=== PATIENT | female | born 1995 | race Caucasian/White ===

== ENCOUNTER → 2017-01-26 | Outpatient (CLI) | payer OTHER ==
[2017-01-26 14:46] LABS: BASO % 0.4 %; BASO ABS # 0.03 K/uL (0-0.2); COMPLETE YES; EOS % 0.9 %; HEMATOCRIT 40.9 % (37-47); IG% 0.1 %; LYMPH % 30.4 %; LYMPH ABS # 2.42 K/uL (1.2-3.4); MEAN CELL VOLUME 91.7 fL (80-100); MEAN CORPUSCULAR HGB CONC 32.8 g/dl (32-36); MEAN PLATELET VOLUME 10.8 fL (7.4-10.4); MONO % 6.8 %; NEUT % 61.4 %; PLATELET COUNT 329 K/uL (130-400); RED BLOOD COUNT 4.46 M/uL (4.2-5.4); WHITE BLOOD COUNT 7.97 K/uL (4.8-10.8)
[2017-01-26 14:48] LABS: URINE APPEARANCE CLEAR (CLEAR); URINE BILIRUBIN NEG (NEG); URINE COLOR YELLOW; URINE NITRITE NEG (NEG); URINE SPECIFIC GRAVITY 1.027 (1.000-1.030); UROBILINOGEN NEG (NEG)
[2017-01-26 14:52] LABS: MANUAL MICROSCOPIC REQUIRED? NO; REVIEW REQ? NO
[2017-01-26 15:00] LABS: ALT/SGPT 22 U/L (12-78); BLOOD UREA NITROGEN 12 mg/dl (7-18); CALCIUM 9.3 mg/dl (8.5-10.1); CARBON DIOXIDE 27 mmol/L (21-32); CHLORIDE 108 mmol/L (98-107); GLUCOSE 84 mg/dl (70-99); MAGNESIUM 2.2 mg/dl (1.8-2.4); SODIUM 140 mmol/L (136-145)
[2017-01-26 15:09] LABS: ALB/GLOB RATIO 1.1 (0.9-2); ALKALINE PHOSPHATASE 67 U/L (45-117); AST/SGOT 14 U/L (15-37); THYROID STIMULATING HORMONE 0.689 uIu/ml (0.300-4.500); TOTAL IRON BINDING CAPACITY 356 mcg/dl (250-450)
== END | disposition home or self-care (01) ==
LOC: C.LAB1850 12:21
PROVIDERS: ATTEND Psychiatry & Neurology Psychiatry
DX: Z51.81 Encounter for therapeutic drug level monitoring (principal); Z79.899 Other long term (current) drug therapy; R04.0 Epistaxis; R53.83 Other fatigue

== ENCOUNTER → 2017-10-17 | Outpatient (CLI) | payer OTHER | END | disposition home or self-care (01) | LOC: C.LAB1850 12:44 | PROVIDERS: ATTEND Psychiatry & Neurology Psychiatry | DX: Z51.81 Encounter for therapeutic drug level monitoring (principal); Z79.899 Other long term (current) drug therapy ==

== ENCOUNTER 2017-11-07 14:58 | Emergency (ER) | payer OTHER ==
[~2017-11-07] VITALS: Ht 157.5 cm; Wt 65.1 kg
[2017-11-07 15:05] VITALS: TEMP 37; Ht 157.5 cm; Wt 65.1 kg
[2017-11-07] MEDS ORDERED: LIDOCAINE 1% BUFFERED INJ 5 ML VIAL INFIL ONE (15:30)
[2017-11-07] MEDS ORDERED: PARO1TAB27 PO (15:52)
[2017-11-07] MEDS ORDERED: QUET1TAB10 PO (15:57)
[2017-11-07] MEDS ORDERED: BUPR200T2 PO (15:57)
[2017-11-07] MEDS ORDERED: LAMO25TA PO (15:57)
[2017-11-07] MEDS ORDERED: AMOX875T PO (15:58)
[2017-11-07 16:17] VITALS: BP 123/78; PULSE 98; O2SAT 98
--- NOTE | 2017-11-07 20:45 | EMERGENCY ROOM VISIT NOTE ---
ED Visit Note First contact with patient: 15:08 Chief Complaint: Dog bite. History of Present Illness: Ms. Parker is a 22-year-old white female who ambulates into the ED accompanied by female friend complaining of a dog bite to the right hand. 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 She reports the Rottweiler has been examined for rabies previously and has been negative and he has been in the shelters care for the last 2 years. Patient reports approximately 1 hour ago she was bitten by the dog. She sustained 2 open wounds on the hand and multiple abrasions on the forearm. Currently she is complaining of hand pain as a throbbing and achy sensation. She rates her discomfort 4/10. Her pain is nonradiating. Her pain worsens with palpation in the area of her lacerations/puncture wounds and her area of bruising. She has not identified any alleviating factors related to the pain. She has not taken any medications for her discomfort prior to arrival at the hospital. She denies any associated symptoms including forearm pain, wrist pain , hand finger numbness/tingling/weakness. Review of Systems: As noted above in history of present illness. Past Medical History: Patient denies. Current Medications: Paxil, Seroquel, Wellbutrin, Lamictal Allergies to Medications: Patient denies. Social History: Patient is currently employed; she feels safe in her home environment; she denies tobacco and alcohol use. Tetanus Immunization Status: Patient reports up-to-date. Physical Examination: Vital Signs: Date Time Temp Pulse Resp B/P (MAP) Pulse Ox O2 Delivery O2 Flow Rate FiO2 11/07/17 16:17 98 20 123/78 98 11/07/17 15:05 37.0 106 20 115/80 99 Room Air GENERAL: 22-year-old female in mild distress due to pain, nontoxic-appearing, afebrile and hemodynamically stable. NEUROLOGICAL: Awake, alert and oriented to person, place and time. Answering questions appropriately and following commands. SKIN: Warm, dry and pink. Right Upper Extremity: On the forearm patient has multiple superficial abrasions and a couple superficial contusions. On the hand she has 2 full-thickness lacerations 1 measuring 1.2 cm over the posterior ulnar styloid process area with bleeding controlled and the second one was 1 cm long over the anterior styloid process without active bleeding. RIGHT UPPER EXTREMITY: No gross bony deformity. No tenderness in the forearm, wrist or fingers. Mild tenderness over her puncture wounds/lacerations. She has full range of motion in all movements of all the fingers and thumb against resistance. Throughout the fingers the skin was warm and pink and capillary refill was brisk. She was able to distinguish light sensations to all dermatomes. ED Course: Patient is assessed as noted above. Patient's medication list was reviewed peer Wound Repair: Complexity: Basic Verbal consent was obtained after the risks and benefits were explained. The skin was prepped with betadine and a sterile field set. Wound edges of the wounds were anesthetized with a total of 3.2 ml buffered 1% lidocaine. The wounds were explored for foreign bodies and none found. Copious irrigation was performed using sterile saline. With direct pressure the bleeding subsided. Debridement was not performed. The wound edges were approximated using 5-0 Ethilon with a total of 4 simple interrupted sutures. Hemostasis and excellent approximation was achieved. Antibacterial ointment and a sterile dressing applied. No complications and the patient tolerated the procedure well. Patient was educated about tonight's findings and instructed on his treatment plan; he verbalizes understanding and agreement with this plan. Clinical Impression: Dog bite injury. Puncture wounds/lacerations to the right hand. Disposition: Patient discharged home in stable condition; prior to departure he was reassessed and subjectively reported she was feeling better and rated her discomfort 2/10. Plan: Comfort measures, wound care and signs of infection were discussed with the patient. Patient was prescribed Augmentin 875 mg 2 times a day for 10 days. Patient was encouraged to follow-up with personal physician or return emergency department for any signs of infection and/or suture removal in 10-12 days.
[2017-11-08] MEDS ORDERED: SULF800T23 PO (14:36)
[2017-11-08] MEDS ORDERED: OXYC1TAB3 PO (14:36)
[2017-11-10] MEDS ORDERED: AMOX875T PO (15:34)
== END 2017-11-07 16:18 | disposition home or self-care (01) ==
LOC: C.EDB 14:59 → C.EDD 16:18
DX: S61.451A Open bite of right hand, initial encounter (principal); S50.811A Abrasion of right forearm, initial encounter; W54.0XXA Bitten by dog, initial encounter; Y99.0 Civilian activity done for income or pay; Z79.01 Long term (current) use of anticoagulants; Z79.899 Other long term (current) drug therapy

== ENCOUNTER 2017-11-08 13:13 | Inpatient (IN) | payer OTHER ==
[~2017-11-08] VITALS: Ht 157.5 cm; Wt 64.4 kg
[~2017-11-08 13:13] MED LIST: AMOX875T PO; BUPR200T2 PO; LAMO25TA PO; PARO1TAB27 PO; QUET1TAB10 PO
[2017-11-08] MEDS ORDERED: CEFTRIAXONE SOD INJ 1 GM ADDVIAL IV STA (13:31)
[2017-11-08] MEDS ORDERED: KETOROLAC TROMETHAMINE 30 MG/ML VIAL IV STA (13:31)
[2017-11-08 13:57] LABS: BASO % 0.1 %; BASO ABS # 0.01 K/uL (0-0.2); EOS % 0.3 %; EOS ABS # 0.03 K/uL (0-0.5); HEMATOCRIT 42.2 % (37-47); HEMOGLOBIN 14.1 g/dL (12.0-16.0); IG# 0.04 K/uL (0.00-0.02); LYMPH % 9.8 %; LYMPH ABS # 1.11 K/uL (1.2-3.4); MEAN CELL VOLUME 90.9 fL (80-100); MEAN CORPUSCULAR HEMOGLOBIN 30.4 pg (25-34); MEAN CORPUSCULAR HGB CONC 33.4 g/dl (32-36); MEAN PLATELET VOLUME 10.4 fL (7.4-10.4); MONO % 13.1 %; MONO ABS # 1.48 K/uL (0.11-0.59); NEUT % 76.3 %; NEUT ABS # 8.67 K/uL (1.4-6.5); PLATELET COUNT 256 K/uL (130-400); RED CELL DISTRIBUTION WIDTH SD 46.6 fL (36.4-46.3); WHITE BLOOD COUNT 11.34 K/uL (4.8-10.8)
[2017-11-08 14:13] LABS: CALCIUM 9.3 mg/dl (8.5-10.1); CREATININE 0.85 mg/dl (0.60-1.20); POTASSIUM 3.3 mmol/L (3.5-5.1)
[2017-11-08] MEDS ORDERED: SULF800T23 PO (14:36)
[2017-11-08] MEDS ORDERED: OXYC1TAB3 PO (14:36)
[2017-11-08] MEDS ORDERED: CLINDAMYCIN 600 MG/54 ML D5W IV ONE (14:45)
--- NOTE | 2017-11-08 15:34 | DIAGNOSTIC IMAGING REPORT ---
R FOREARM 2 VIEWS ROUTINE HISTORY: 22 years-old Female dog bite; increasing redness and swelling acute soft tissue injury of the right forearm COMPARISON: None available TECHNIQUE: 2 views of the right forearm FINDINGS: No acute fracture, dislocation or opaque foreign body. Mild to moderate soft tissue swelling about the mid and distal forearm, most pronounced along the volar surface. IMPRESSION: Soft tissue swelling without fracture or opaque foreign body. The above report was generated using voice recognition software. It may contain grammatical, syntax or spelling errors. Electronically signed by: Guy Kern M.D. 11/08/2017 3:33 PM Dictated Date/Time: 11/08/2017 3:32 PM
[2017-11-08] MEDS ORDERED: ONDANSETRON INJ 2 MG/ML 2 ML VIAL IV STA (15:36)
[2017-11-08] MEDS ORDERED: MoRPHine SULFATE 2 MG/ML CARP IV STA (15:36)
[2017-11-08] MEDS ORDERED: OPTIRAY 320 IV PRN (15:45)
--- NOTE | 2017-11-08 16:38 | DIAGNOSTIC IMAGING REPORT ---
R UPPER EXTREMITY WITH HISTORY: 22 years-old Female dog bitel eval for tenosynvitis acute right arm pain status post dog bite COMPARISON: Right forearm radiographs of same day TECHNIQUE: Multiple axial CT images of the right upper extremity were obtained following the intravenous administration of 95 and now Optiray 320 IV contrast. A dose lowering technique was used consistent with the principals of [place]. FINDINGS: No acute fracture, dislocation or opaque foreign body identified. No significant degenerative changes. There is mild subcutaneous edema about the volar and dorsal aspects of the distal forearm without loculated fluid collection or abnormal enhancement identified. No definite evidence of muscular injury on these images. No definite evidence of tenosynovitis. IMPRESSION: 1. Mild likely posttraumatic subcutaneous edema about the volar and dorsal aspects of the distal forearm without large hematoma, opaque foreign body or acute fracture identified. 2. CT is relatively insensitive for evaluation of tenosynovitis. If of further clinical concern, follow-up MRI on a nonemergent basis is recommended. The above report was generated using voice recognition software. It may contain grammatical, syntax or spelling errors. Electronically signed by: Guy Kern M.D. 11/08/2017 4:36 PM Dictated Date/Time: 11/08/2017 4:29 PM
[2017-11-08] MEDS ORDERED: MoRPHine SULFATE 4 MG/ML 1 ML CARP\\VIAL IV PRN (17:15)
[2017-11-08] MEDS ORDERED: ONDANSETRON INJ 2 MG/ML 2 ML VIAL IV PRN (17:15)
[2017-11-08] MEDS ORDERED: ACETAMINOPHEN 325 MG TAB PO PRN (17:15)
[2017-11-08 18:20] VITALS: BP 122/74; PULSE 101; TEMP 37; O2SAT 100; Ht 157.5 cm; Wt 64.4 kg
--- NOTE | 2017-11-08 19:26 | EMERGENCY ROOM VISIT NOTE ---
ED Visit Note First contact with patient: 13:22 Chief Complaint: My dog bite got infected. History of Present Illness: Ms. Parker is a [id number] 22-year-old white female who ambulates into the ED complaining of a skin infection post dog bite. 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 She sustained 2 puncture wounds measuring 1 cm that I felt required suture closure. Her suture closure was normal but I used additional irrigation for cleaning. She was discharged to home on Augmentin and encouraged to follow-up or return to the ED as needed for signs of infection and/or suture removal. Patient wish reports she noted earlier today that she was developing redness that was surrounding her rooms, her lower forearm and moving up the forearm. This was associated with increasing pain throughout the forearm. She reports prior to coming to the ED she was seen at a local urgent care center who referred her to the ED. Currently she is complaining of a throbbing discomfort throughout the anterior and posterior forearm. She rates this discomfort 7/10. Her pain worsens with palpation, flexion, extension and radial and ulnar deviation of the wrist, flexion and extension of the fingers and pronation and supination of the forearm. She has mild relief when the arm is at rest and lying at her side. She has not taken any medications for pain prior to arrival at the hospital. Associated with her pain she reports she has paresthesias of all her fingers in her hand. She denies fevers, chills, sweats, other skin eruptions, other skin color changes, upper respiratory tract symptoms, cough, wheezing, shortness of breath , decreased appetite, nausea, vomiting, right axillary pain, right upper extremity weakness. Review of Systems: As noted above in history of present illness. All body systems were reviewed and found to be negative as noted above. Past Medical History: Unspecified psychiatric disorders, status post tonsillectomy. Current Medications: Medications Dose Route/Sig Max Daily Dose Days Date Category Lamictal (Lamotrigine) Unknown Strength Tab 1 Tab PO DAILY 11/07/17 Reported Wellbutrin Sr (Bupropion Hcl) 200 Mg Tab 200 Mg PO DAILY 11/07/17 Reported Seroquel (Quetiapine Fumarate) 200 Mg Tab 200 Mg PO HS 11/07/17 Reported Paxil (Paroxetine HCl) 20 Mg Tab 20 Mg PO DAILY 11/07/17 Reported Allergies to Medications: Patient denies. Social History: Patient is currently employed; she feels safe in her home environment; she denies tobacco use and admits to alcohol use. Tetanus Immunization Status: Patient reports up-to-date. Physical Examination: Vital Signs: Date Time Temp Pulse Resp B/P (MAP) Pulse Ox O2 Delivery O2 Flow Rate FiO2 11/08/17 16:02 98 16 116/78 97 Room Air 11/08/17 14:45 104 16 128/89 99 Room Air 11/08/17 13:54 101 16 123/84 100 Room Air 11/08/17 13:19 36.9 110 18 116/78 100 Room Air GENERAL: 22-year-old female in mild to moderate distress due to pain, nontoxic- appearing, afebrile and hemodynamically stable. NEUROLOGICAL: Awake, alert and oriented to person, place and time. Answering questions appropriately and following commands. Normal gait. SKIN: Warm, dry and pink. Right Upper Extremity: Patient's sutured wounds are over the lateral aspect of the radial styloid process and the dorsal aspect of the ulnar styloid process. Extending from both of these wounds inferiorly and superiorly is a mild erythema and edema with prominent superior extension. The erythema and edema is circumferential around the lower forearm and extends to the mid forearm. No lymphangitis above the cellulitis. No drainage from the wound. The skin is hot and tender to palpation. There is no purulent drainage from her wounds. There is no local lymphadenopathy. HEENT: Atraumatic and normocephalic. P THORAX: Lungs sounds are clear to auscultation and equal bilaterally with symmetrical chest wall. ABDOMEN: Flat, soft and nontender. Positive bowel sounds in all quadrants. No guarding, rigidity or organomegaly. RIGHT UPPER EXTREMITY: No gross bony deformity. No tenderness throughout the shoulder, upper arm, elbow and proximal forearm. Moderate tenderness throughout her forearm. Tenderness to percussion of the flexor tendons. Full range of motion in flexion and extension of the elbow. Decreased range of motion at the wrist in all movements due to pain. Passive pain with wrist extension. She also has an increase in pain when she fully extends all her fingers at the MCP, PIP and DIP joints. The hand is warm and pink but is not erythematous. She was able to distinguish light sensations through all dermatomes. She was able to touch her thumb to all fingers but reports she had a pulling sensation in the forearm when she performed this. Because of difficulty fully extending her fingers intrinsic hand strength was not tested. Her capillary refill was brisk to all fingers. ED Course: Patient is assessed as noted above. Patient's medication list was reviewed. Laboratory Testing: Test 11/08/17 13:35 Range/Units White Blood Count 11.34 4.8-10.8 K/uL Red Blood Count 4.64 4.2-5.4 M/uL Hemoglobin 14.1 12.0-16.0 g/dL Hematocrit 42.2 37-47 % Mean Corpuscular Volume 90.9 80-100 fL Mean Corpuscular Hemoglobin 30.4 25-34 pg Mean Corpuscular Hemoglobin Concent 33.4 32-36 g/dl Platelet Count 256 130-400 K/uL Mean Platelet Volume 10.4 7.4-10.4 fL Neutrophils (%) (Auto) 76.3 % Lymphocytes (%) (Auto) 9.8 % Monocytes (%) (Auto) 13.1 % Eosinophils (%) (Auto) 0.3 % Basophils (%) (Auto) 0.1 % Neutrophils # (Auto) 8.67 1.4-6.5 K/uL Lymphocytes # (Auto) 1.11 1.2-3.4 K/uL Monocytes # (Auto) 1.48 0.11-0.59 K/uL Eosinophils # (Auto) 0.03 0-0.5 K/uL Basophils # (Auto) 0.01 0-0.2 K/uL RDW Standard Deviation 46.6 36.4-46.3 fL RDW Coefficient of Variation 14.0 11.5-14.5 % Immature Granulocyte % (Auto) 0.4 % Immature Granulocyte # (Auto) 0.04 0.00-0.02 K/uL Erythrocyte Sedimentation Rate 11 0-21 mm/hr Sodium Level 139 136-145 mmol/L Potassium Level 3.3 3.5-5.1 mmol/L Chloride Level 106 98-107 mmol/L Carbon Dioxide Level 25 21-32 mmol/L Anion Gap 8.0 3-11 mmol/L Blood Urea Nitrogen 8 7-18 mg/dl Creatinine 0.85 0.60-1.20 mg/dl Est Creatinine Clear Calc Drug Dose 92.3 ml/min Estimated GFR () 113.5 Estimated GFR (Non- 97.9 BUN/Creatinine Ratio 9.7 10-20 Random Glucose 81 70-99 mg/dl Calcium Level 9.3 8.5-10.1 mg/dl Blood Culture: Pending Right Forearm X-Rays: Were read by myself and the radiologist showing no acute fractures or dislocations. Mild to moderate soft tissue swelling over the mid to distal forearm. No foreign bodies were noted. IV Contrast Right Upper Extremity CT was reviewed by myself and read by the radiologist showing mild posttraumatic subcutaneous edema about the volar and dorsal aspect of the distal forearm without large hematoma, foreign body, fracture or fluid collection. This was to evaluate for tenosynovitis and radiologist notes that further evaluation would best occur with an MRI. An IV lock was initiated and patient initially received 1 g of Rocephin IV and 30 mg of Toradol IV. Patient was reassessed multiple times during her stay in the emergency department. Patient's case was reviewed with Dr. Pang; he independently assessed the patient we agreed on diagnostic approach, treatment, disposition and plan. Patient received 600 mg of clindamycin IV and 2 mg of morphine IV for pain and 4 mg of Zofran IV for possible nausea. Patient's case was requested to be consulted with Dr. Blake, [facility], for possible surgical evaluation and/or admission. I did speak to multiple physician assistants in his practice because he was not in town but at a remote office. Through these conversations it was requested that the patient be admitted under medicine with orthopedics to consult. I did contact nikunj Kellyist; she requests that the patient be evaluated tonight for her symptoms by the orthopedist and they would admit the patient. I did contact Dr. Pitts who reported he would come to evaluate the patient tonight for the hospitalist. Patient was educated on today's findings. Clinical Impression: Right forearm cellulitis. Possible tenosynovitis. Status post dog bite. Decision-Making: Initially my differential diagnosis I considered tendinitis, tenosynovitis, foreign body infection, forearm fracture, and other causes. Disposition and Paln: Patient to be brought into the hospital by jordan Kelly, for medical observation/admission. Please see her notes and orders for final disposition and plan.
--- NOTE | 2017-11-08 19:40 | History and Physical ---
History & Physical Date & Time of Service: November 08, 2017 ~ 16:45 Chief Complaint: Infected Dog Bite Primary Care Physician: No Doctor, Assigned History of Present Illness 22-year-old female who presents to the ED with increased redness, pain, swelling to dog bite site that happened yesterday. 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 While in the ED, patient received sutures to the 2 puncture wound sites and given a prescription for Augmentin. Patient reports that this morning whenever she took off the bandage that was placed in the ED, she noticed increased redness and swelling. She also reports a moderate amount of pain and associated tingling in her fingers. She denies fevers and chills. No abdominal pain, nausea, vomiting. She denies chest pain, shortness of breath , lightheadedness, dizziness, diaphoresis, or syncopal events. No urinary symptoms. In the ED, patient is afebrile with no leukocytosis. CT of the right wrist was obtained that does not show any fluid collection. She was given IV clindamycin, IV Rocephin, IV morphine, IV Toradol, and IV Zofran. Past Medical/Surgical History Medical Problems: (1) Bipolar disorder Status: Chronic Family History Negative for premature CAD, diabetes, CVA Social History Smoking Status: Never Smoker Alcohol Use: occasionally Allergies Coded Allergies: No Known Allergies (Unverified , 11/08/17) Home Medications Scheduled Bupropion Hcl (Wellbutrin Sr), 200 MG PO DAILY Lamotrigine (Lamictal), 1 TAB PO DAILY Paroxetine (Paxil), 20 MG PO DAILY Quetiapine Fumarate (Seroquel), 200 MG PO HS Review of Systems ROS per HPI, all other systems reviewed and negative Physical Exam Vital Signs Date Time Temp Pulse Resp B/P (MAP) Pulse Ox O2 Delivery O2 Flow Rate FiO2 11/08/17 16:02 98 16 116/78 97 Room Air 11/08/17 14:45 104 16 128/89 99 Room Air 11/08/17 13:54 101 16 123/84 100 Room Air 11/08/17 13:19 36.9 110 18 116/78 100 Room Air General Appearance: WD/WN, no apparent distress Head: normocephalic, atraumatic Eyes: normal inspection, EOMI, sclerae normal ENT: hearing grossly normal, + pertinent finding (Mucous membranes moist) Neck: supple, no JVD, trachea midline Respiratory/Chest: lungs clear, normal breath sounds, no respiratory distress Cardiovascular: regular rate, rhythm, no edema, normal peripheral pulses Abdomen/GI: normal bowel sounds, non tender, soft, no organomegaly Extremities/Musculoskelatal: + pertinent finding (Puncture wounds noted on the right wrist-1 on the dorsal aspect of the ulna, another on the ventral aspect of the radius-sutures intact; has significant surrounding erythema and edema, erythema has been outlined; palpable right radial pulse; decreased sensation noted to fingers; ROM to fingers limited due to pain) Neurologic/Psych: no motor/sensory deficits, alert, normal mood/affect, oriented x 3 Skin: normal color, warm/dry Diagnostics Laboratory Results Results Past 24 Hours Test 11/08/17 13:35 Range/Units White Blood Count 11.34 4.8-10.8 K/uL Red Blood Count 4.64 4.2-5.4 M/uL Hemoglobin 14.1 12.0-16.0 g/dL Hematocrit 42.2 37-47 % Mean Corpuscular Volume 90.9 80-100 fL Mean Corpuscular Hemoglobin 30.4 25-34 pg Mean Corpuscular Hemoglobin Concent 33.4 32-36 g/dl Platelet Count 256 130-400 K/uL Mean Platelet Volume 10.4 7.4-10.4 fL Neutrophils (%) (Auto) 76.3 % Lymphocytes (%) (Auto) 9.8 % Monocytes (%) (Auto) 13.1 % Eosinophils (%) (Auto) 0.3 % Basophils (%) (Auto) 0.1 % Neutrophils # (Auto) 8.67 1.4-6.5 K/uL Lymphocytes # (Auto) 1.11 1.2-3.4 K/uL Monocytes # (Auto) 1.48 0.11-0.59 K/uL Eosinophils # (Auto) 0.03 0-0.5 K/uL Basophils # (Auto) 0.01 0-0.2 K/uL RDW Standard Deviation 46.6 36.4-46.3 fL RDW Coefficient of Variation 14.0 11.5-14.5 % Immature Granulocyte % (Auto) 0.4 % Immature Granulocyte # (Auto) 0.04 0.00-0.02 K/uL Erythrocyte Sedimentation Rate 11 0-21 mm/hr Sodium Level 139 136-145 mmol/L Potassium Level 3.3 3.5-5.1 mmol/L Chloride Level 106 98-107 mmol/L Carbon Dioxide Level 25 21-32 mmol/L Anion Gap 8.0 3-11 mmol/L Blood Urea Nitrogen 8 7-18 mg/dl Creatinine 0.85 0.60-1.20 mg/dl Est Creatinine Clear Calc Drug Dose 92.3 ml/min Estimated GFR () 113.5 Estimated GFR (Non- 97.9 BUN/Creatinine Ratio 9.7 10-20 Random Glucose 81 70-99 mg/dl Calcium Level 9.3 8.5-10.1 mg/dl Microbiology Results 11/08/17 Blood Culture, Received Pending 11/08/17 Blood Culture, Received Pending Diagnostic Radiology FOREARM X-RAY IMPRESSION: Soft tissue swelling without fracture or opaque foreign body. RIGHT WRIST CT IMPRESSION: 1. Mild likely posttraumatic subcutaneous edema about the volar and dorsal aspects of the distal forearm without large hematoma, opaque foreign body or acute fracture identified. 2. CT is relatively insensitive for evaluation of tenosynovitis. If of further clinical concern, follow-up MRI on a nonemergent basis is recommended. Impression Assessment and Plan RIGHT WRIST CELLULITIS, DOG BITE -Admit to [facility] -Patient suffered a dog bite yesterday, was seen in the ED and had 2 sutures placed and was started on Augmentin; when she woke up this morning, she had increased pain, erythema, and edema -Afebrile, no leukocytosis; do not suspect sepsis -CT negative for fluid collection -S/P clindamycin and Rocephin in the ED; will continue with Unasyn for now -Consider tenosynovitis -Orthopedics contacted by the ED who will evaluate the patient tonight BIPOLAR -Continue home medications; bupropion, limited green, paroxetine, quetiapine DVT PROPHYLAXIS -SCDs in the event patient needs invasive procedure DISPOSITION -In my clinical judgment this beneficiary meets acute admission criteria, established by [facility], that includes being hospitalized through two midnights. 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 Sustained a dog bite on her right hand while trying to adjust the dog's collar Per patient: The dog was fully vaccinated Patient was seen in the ER yesterday Is discharged home with Augmentin His morning noted worsening of pain, swelling and redness of right hand and wrist progressing to right elbow No fever or chills Came to ER for evaluate Patient empirically started with IV Unasyn CT of right hand showed no evidence of abscess, generalized tissue edema Orthopedics consulted Recommend continue with IV antibiotics If no improvement after next 24-48 hours Patient will need MRI of hand and wrist Remedios Palumbo MD Resuscitation Status VTE Prophylaxis Will order VTE Prophylaxis: Yes
--- NOTE | 2017-11-08 19:57 | ORTHOPEDIC CONSULTATION ---
DATE OF CONSULTATION: 11/08/2017 Special attention to right hand swelling. HISTORY OF PRESENT ILLNESS: This is a 22-year-old female who sustained a dog bite yesterday to the right wrist. She was seen in the Emergency Department and was placed on Augmentin. She notes increasing pain, swelling, and redness in the extremity. She denies any other complaints. She notes some tingling in all the fingers but no overt numbness. PAST MEDICAL HISTORY: Bipolar disorder. MEDICATIONS: Paxil, Seroquel, Wellbutrin, and Lamictal. SOCIAL HISTORY: Denies tobacco, alcohol, or drug use. PHYSICAL EXAMINATION: RIGHT WRIST: She has a laceration over the radial aspect of the wrist just proximal to the wrist joint. There was no gross purulence or drainage. She has a moderate amount of erythema in the volar wrist extending approximately 6 cm proximal to the wrist. I do not detect any obvious fluctuance, but it is slightly boggy. She has mild pain with range of motion of the digits but she has negative Kanavel sign. She has no localized swelling in her flexor tendons in the fingers. She has moderate erythema of the dorsal aspect of the wrist and she has a puncture wound in the region of the radiocarpal joint just distal to the ulnar styloid. There is no drainage from this laceration and this is sutured closed. She has minimal pain with short arc passive motion of the wrist and she can actively flex and extend the wrist and the digits. ASSESSMENT: A 22-year-old female with: 1. Dog bite, right upper extremity. 2. Right upper extremity cellulitis. Review of CAT scan shows no obvious evidence of abscess or obvious flexor tenosynovitis. PLAN: At this point, I would like to follow her clinical course. I do not see any surgical indications at this point in time. She does not have an obviously septic joint or septic flexor tenosynovitis or an abscess. We will continue antibiotics. We will follow her clinical course. If she does not respond to antibiotics, may consider surgical treatment. I feel she would benefit from an MRI to evaluate to see if she has any evidence of flexor tenosynovitis in the wrist or Parona's space. We will allow her to eat currently, but make her n.p.o. after midnight tomorrow in case surgical treatment is entertained. We will recheck tomorrow and follow her clinical course.
[2017-11-08] MEDS: AMPICILLIN/SULBACTAM SOD INJ 3,000 MG in SODIUM CHLORIDE 0.9% 100ML 100 ML IV SCH (20:07)
[2017-11-08] MEDS ORDERED: GADAVIST IV PRN (22:15)
[2017-11-08] MEDS: QUETIAPINE FUMARATE 200 MG TAB PO SCH (22:22)
--- NOTE | 2017-11-08 22:51 | DIAGNOSTIC IMAGING REPORT ---
RIGHT WRIST MRI WITH AND WITHOUT INTRAVENOUS CONTRAST HISTORY: Right wrist swelling and pain. r/o flexor tenosynovitis in the wrist, r/o septic wrist joint TECHNIQUE: Multiplanar multisequence MRI of the right wrist was performed both before and the intravenous administration of contrast. COMPARISON STUDY: Right wrist CT 11/08/2017. FINDINGS: There is subcutaneous edema and enhancement throughout the majority of the wrist most pronounced dorsally. Small amount of fluid along the extensor tendons of the wrist. This is most pronounced at the extensor digitorum tendons. There is also a small wrist effusion. There is mild enhancement of the synovial lining within the wrist. The flexor tendons are intact. The median nerve and mastoids a normal caliber and signal intensity. Normal marrow signal intensity seen throughout the visit osseous structures. No abnormal T1 signal or erosions at this time to suggest an osteomyelitis. Cartilage spaces are maintained for age. There is also a small amount of fluid tracking deep to the flexor tendons. No fracture or dislocation. IMPRESSION: 1. Subcutaneous edema and enhancement throughout the majority of the wrist most pronounced dorsally. This is consistent with a cellulitis. 2. Small amount of fluid surrounding the extensor tendons most pronounced at the extensor digital tendons consistent with a nonspecific tenosynovitis. There is fluid tracking deep to the flexor tendons but not surrounding the flexor tendons appear 3. Small wrist effusion. No bony destruction are cartilage abnormality at this time. However, there is mild enhancement of the synovial lining consistent with a nonspecific synovitis. Therefore, a septic process cannot be excluded. 4. No evidence for osteomyelitis. Electronically signed by: Johny Lyon M.D. 11/08/2017 10:50 PM Dictated Date/Time: 11/08/2017 10:42 PM
[2017-11-08 23:05] VITALS: BP 100/62; PULSE 93; TEMP 36.6; O2SAT 98
[2017-11-08 23:30] VITALS: O2SAT 98
[2017-11-09] MEDS: AMPICILLIN/SULBACTAM SOD INJ 3,000 MG in SODIUM CHLORIDE 0.9% 100ML 100 ML IV SCH ×4 (02:10→20:26)
[2017-11-09] MEDS: KETOROLAC TROMETHAMINE 15 MG/ML VIAL IV PRN ×2 (05:51→20:26)
[2017-11-09 06:27] LABS: HEMATOCRIT 37.4 % (37-47); HEMOGLOBIN 12.8 g/dL (12.0-16.0); MEAN CELL VOLUME 91.2 fL (80-100); MEAN CORPUSCULAR HEMOGLOBIN 31.2 pg (25-34); MEAN CORPUSCULAR HGB CONC 34.2 g/dl (32-36); MEAN PLATELET VOLUME 10.7 fL (7.4-10.4); PLATELET COUNT 220 K/uL (130-400); RED CELL DISTRIBUTION WIDTH CV 14.1 % (11.5-14.5); RED CELL DISTRIBUTION WIDTH SD 47.3 fL (36.4-46.3); WHITE BLOOD COUNT 9.34 K/uL (4.8-10.8)
[2017-11-09 06:59] LABS: CALCIUM 8.5 mg/dl (8.5-10.1); CREATININE 0.73 mg/dl (0.60-1.20); POTASSIUM 3.5 mmol/L (3.5-5.1)
[2017-11-09 08:14] VITALS: BP 102/70; PULSE 98; TEMP 36.8; O2SAT 98
[2017-11-09 08:18] VITALS: O2SAT 98
--- NOTE | 2017-11-09 08:56 | Orthopedic Progress Note ---
Orthopedic Progress Note Date of Service November 09, 2017. Subjective Reports: feeling well, Denies: chest pain, SOB, nausea / vomiting, light headedness, calf pain Additional Notes: FEELING SLIGHTLY BETTER THIS AM PER THE PATEINT. Objective N/V intact, capillary refill less than 2 sec., incision C/D/I, A&O x3 LACERATION REPAIR X 2, CDI. NO DRAINAGE. NO FLUCTUANCE OR OBVIOUS FLUID COLLECTION NOTED. ERYTHEMA STABLE DEMARCATION. Date Time Temp Pulse Resp B/P (MAP) Pulse Ox O2 Delivery O2 Flow Rate FiO2 11/09/17 08:18 98 Room Air 11/09/17 08:14 36.8 98 16 102/70 (81) 98 Room Air 11/08/17 23:30 98 Room Air 11/08/17 23:05 36.6 93 17 100/62 (75) 98 Room Air 11/08/17 18:20 37.0 101 16 122/74 (90) 100 Room Air 11/08/17 18:20 37.0 101 16 122/74 100 Room Air 11/08/17 18:00 108 16 117/75 100 Room Air 11/08/17 16:02 98 16 116/78 97 Room Air 11/08/17 14:45 104 16 128/89 99 Room Air 11/08/17 13:54 101 16 123/84 100 Room Air 11/08/17 13:19 36.9 110 18 116/78 100 Room Air Laboratory Results 24 Hours: Test 11/08/17 13:35 11/09/17 05:56 White Blood Count 11.34 K/uL Red Blood Count 4.64 M/uL Hemoglobin 14.1 g/dL 12.8 g/dL Hematocrit 42.2 % 37.4 % Mean Corpuscular Volume 90.9 fL Mean Corpuscular Hemoglobin 30.4 pg Mean Corpuscular Hemoglobin Concent 33.4 g/dl Platelet Count 256 K/uL Mean Platelet Volume 10.4 fL Neutrophils (%) (Auto) 76.3 % Lymphocytes (%) (Auto) 9.8 % Monocytes (%) (Auto) 13.1 % Eosinophils (%) (Auto) 0.3 % Basophils (%) (Auto) 0.1 % Neutrophils # (Auto) 8.67 K/uL Lymphocytes # (Auto) 1.11 K/uL Monocytes # (Auto) 1.48 K/uL Eosinophils # (Auto) 0.03 K/uL Basophils # (Auto) 0.01 K/uL Additional Notes: Item Value Date Time Erythrocyte Sedimentation Rate 11 mm/hr 11/08/17 7835 Assessment & Plan Assessment: RIGHT HAND CELLULITIS SP DOG BITE, LACERATION REPAIR. Plan: CONTINUE IV ABX REGULAR DIET TODAY, WILL MAKE NPO FOR TOMORROW JUST IN CASE WILL CONTINUE TO MONITOR CLINICAL RESPONSE WILL REVIEW IMAGING WITH DR. GORDON TODAY.
[2017-11-09] MEDS: D5W AND NSS 1,000 ML IV SCH ×2 (09:35→20:27)
[2017-11-09] MEDS: BuPROPion SR 100 MG TABCR PO SCH (09:35)
[2017-11-09] MEDS: PAROXETINE 20 MG TAB PO SCH (09:35)
[2017-11-09 12:17] VITALS: BP 106/74; PULSE 102; TEMP 36.5; O2SAT 100
--- NOTE | 2017-11-09 12:43 | Progress Note ---
Medicine Progress Note Date & Time of Visit: November 09, 2017 at 12:43. 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 less swelling no other symptoms Objective Last 8 Hrs Date Time Temp Pulse Resp B/P (MAP) Pulse Ox O2 Delivery O2 Flow Rate FiO2 11/09/17 12:17 36.5 102 16 106/74 (85) 100 Room Air 11/09/17 08:18 98 Room Air 11/09/17 08:14 36.8 98 16 102/70 (81) 98 Room Air 11/09/17 08:00 Room Air Physical Exam: General- oriented x 3, not in distress, speaks in sentences with no effort Head- atraumatic Eyes- PERRL, EOMI, anicteric ENT- oropharynx clear Neck- supple, no JVD, no adenopathy, no thyromegaly Lungs- clear to auscultation bilaterally Heart- regular rhythm; no murmur, normal rate Abdomen- normal bowel sounds, soft, nontender Extremities- right arm: less erythema, no warmth/tenderness, no active discharge from puncture sites no pretibial edema, no calf tenderness; peripheral pulses intact Neuro- alert, oriented x 3; PERRL, EOMI; no facial palsy; no dysarthria; motor 5 /5 bilaterally; no cogwheel rigidity; patellar DTRs +2/2; toes downgoing bilaterally; finger to nose intact bilaterally Skin- warm & dry Laboratory Results: Last 24 Hours Test 11/08/17 13:35 11/09/17 05:56 White Blood Count 11.34 K/uL 9.34 K/uL Red Blood Count 4.64 M/uL 4.10 M/uL Hemoglobin 14.1 g/dL 12.8 g/dL Hematocrit 42.2 % 37.4 % Mean Corpuscular Volume 90.9 fL 91.2 fL Mean Corpuscular Hemoglobin 30.4 pg 31.2 pg Mean Corpuscular Hemoglobin Concent 33.4 g/dl 34.2 g/dl Platelet Count 256 K/uL 220 K/uL Mean Platelet Volume 10.4 fL 10.7 fL Neutrophils (%) (Auto) 76.3 % Lymphocytes (%) (Auto) 9.8 % Monocytes (%) (Auto) 13.1 % Eosinophils (%) (Auto) 0.3 % Basophils (%) (Auto) 0.1 % Neutrophils # (Auto) 8.67 K/uL Lymphocytes # (Auto) 1.11 K/uL Monocytes # (Auto) 1.48 K/uL Eosinophils # (Auto) 0.03 K/uL Basophils # (Auto) 0.01 K/uL RDW Standard Deviation 46.6 fL 47.3 fL RDW Coefficient of Variation 14.0 % 14.1 % Immature Granulocyte % (Auto) 0.4 % Immature Granulocyte # (Auto) 0.04 K/uL Erythrocyte Sedimentation Rate 11 mm/hr Sodium Level 139 mmol/L 138 mmol/L Potassium Level 3.3 mmol/L 3.5 mmol/L Chloride Level 106 mmol/L 106 mmol/L Carbon Dioxide Level 25 mmol/L 24 mmol/L Anion Gap 8.0 mmol/L 9.0 mmol/L Blood Urea Nitrogen 8 mg/dl 9 mg/dl Creatinine 0.85 mg/dl 0.73 mg/dl Est Creatinine Clear Calc Drug Dose 92.3 ml/min 107.4 ml/min Estimated GFR () 113.5 136.5 Estimated GFR (Non- 97.9 117.7 BUN/Creatinine Ratio 9.7 12.9 Random Glucose 81 mg/dl 83 mg/dl Calcium Level 9.3 mg/dl 8.5 mg/dl Date/Time Source Procedure Growth Status 11/08/17 13:40 Blood Blood Culture Pending Received 11/08/17 13:35 Blood Blood Culture Pending Received Assessment & Plan RIGHT WRIST CELLULITIS, DOG BITE -CT negative for fluid collection MRI arm noted -- improving ff up cultures continue Unasyn -- appreciate Ortho recommendations will consult ID BIPOLAR -Continue home medications; bupropion, limited green, paroxetine, quetiapine DVT PROPHYLAXIS -SCDs in the event patient needs invasive procedure DISPOSITION pending Current Inpatient Medications: Current Inpatient Medications Medications (Trade) Dose Ordered Sig/Khanh Route Start Time Stop Time Status Last Admin Dose Admin Ioversol (Optiray 320) 100 ml UD PRN IV 11/08/17 15:45 11/12/17 15:44 Acetaminophen (Tylenol Tab) 650 mg Q4H PRN PO 11/08/17 17:15 12/08/17 17:14 Ondansetron HCl (Zofran Inj) 4 mg Q6H PRN IV 11/08/17 17:15 6/15/18 17:14 Ampicillin Sodium/ Sulbactam Sodium 3000 mg/Sodium Chloride 108 ml @ 200 mls/hr Q6H IV 11/08/17 20:00 11/18/17 17:14 11/09/17 08:02 200 MLS/HR Ketorolac Tromethamine (Toradol Inj) 15 mg Q6H PRN IV 11/08/17 17:15 11/13/17 17:14 11/09/17 05:51 15 MG Morphine Sulfate (MoRPHine SULFATE INJ) 3 mg Q3H PRN IV 11/08/17 17:15 11/22/17 17:14 Bupropion HCl (Wellbutrin-Sr Tab) 200 mg DAILY PO 11/09/17 09:00 12/09/17 08:59 11/09/17 09:35 200 MG Paroxetine HCl (pAXil TAB) 20 mg DAILY PO 11/09/17 09:00 12/09/17 08:59 11/09/17 09:35 20 MG Quetiapine Fumarate (seroQUEL TAB) 200 mg HS PO 11/08/17 21:00 12/08/17 20:59 11/08/17 22:22 200 MG Lamotrigine (Lamictal Tab) 50 mg DAILY PO 11/09/17 09:00 12/09/17 08:59 11/09/17 09:35 50 MG Gadobutrol (Gadavist) 6 mmol UD PRN IV 11/08/17 22:15 11/12/17 22:14 Dextrose/Sodium Chloride 1,000 ml @ 100 mls/hr Q10H IV 11/09/17 08:45 12/09/17 08:44 11/09/17 09:35 100 MLS/HR
--- NOTE | 2017-11-09 14:49 | Progress Note ---
Progress Note Date of Service November 09, 2017. Progress Note ID Consult Dictated #[id number] A/P: 1. Dog bite cellulitis -Continue unasyn, follow cultures -will follow, thank you
[2017-11-09 15:15] VITALS: BP 105/71; PULSE 94; TEMP 36.4; O2SAT 99
--- NOTE | 2017-11-09 17:42 | PROGRESS NOTE ---
DATE: 11/09/2017 SUBJECTIVE: Raheem was seen at the bedside today. She notes overall less pain compared to yesterday. Denies any other complaint. OBJECTIVE: EXTREMITIES: Right hand examination: Right hand shows less erythema compared to yesterday. She has ability to actively flex and extend the digits without discomfort. Negative Kanavel sign. I can move her wrist without significant discomfort. No evidence of septic joint. ASSESSMENT: Hospital day #1, cellulitis right hand, status post dog bite. PLAN: At this point in time, I do not see any surgical indications. I do feel she is responding well to antibiotics. Orthopedics will sign off. Please call if there any further questions or concerns.
--- NOTE | 2017-11-09 19:34 | INFECT. DISEASE CONSULTATION ---
DATE OF CONSULTATION: 11/09/2017 Infectious disease consult note. HISTORY OF PRESENT ILLNESS: This is a 22-year-old female who was admitted after she had worsening cellulitis. 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 She was initially seen in the ER, the wound was sutured and she was sent home on Augmentin. She continued to have worsening pain, swelling, erythema and decreased range of motion. She reported back to the Emergency Room and was subsequently admitted. She is currently on Unasyn and is tolerating this well. She did have an MRI of the wrist which showed cellulitis and some extensor tenosynovitis, but no fluid collection was identified. She was seen by orthopedic surgery and there are no plans for OR at this time. She states the dog was up-to-date with rabies vaccination. Her last tetanus vaccine was in 2016. She initially had a white blood cell count of 11.3, it has improved to 9. Her sed rate is normal at 11. She is tolerating antibiotics well. She denies any chest pain, cough, shortness of breath, nausea, vomiting, diarrhea or abdominal pain. She has improved range of motion today and less pain. Erythema is also improving from admission. Her remaining review of systems is reviewed and unremarkable. PAST MEDICAL HISTORY: Significant for bipolar disorder. FAMILY HISTORY: Noncontributory. SOCIAL HISTORY: Negative for tobacco use or drug use. She occasionally drinks alcohol. ALLERGIES: She has no known drug allergies. MEDICATIONS: Wellbutrin, Paxil, Lamictal, Seroquel, Unasyn, Tylenol, Zofran, Toradol, morphine. PHYSICAL EXAMINATION: VITAL SIGNS: She is afebrile, pulse 102, respiratory rate 16, blood pressure 106/74, oxygen saturation is 100% on room air. GENERAL: She is awake, alert and oriented x3. She is in no acute distress. HEENT: Mucous membranes are moist. Extraocular muscles are intact. HEART: Regular. LUNGS: Clear. ABDOMEN: Soft and nontender. EXTREMITIES: There is no lower extremity edema. SKIN: Without rash. Examination of the right wrist reveals erythema to be improving from line drawn in the Emergency Room. There is swelling at the wrist. Suture sites are clean, dry and intact. There is no purulent drainage. Sensation is intact. She is able to move her digits with minimal pain. She has diminished flexion and extension at the wrist secondary to pain and swelling. LABORATORY STUDIES: CBC: White blood cell count 9.3, hemoglobin 12.8, platelets 220. Sed rate was 11. Chemistry panel: Sodium 138, potassium 3.5, chloride 106, bicarb 24, BUN 9, creatinine 0.7, glucose 83. Imaging is as above. Blood culture and wound cultures are pending. ASSESSMENT AND PLAN: Dog bite cellulitis. She will remain on Unasyn pending additional culture results. She is clinically improving. We will follow along with you. Thank you for this consultation.
[2017-11-09] MEDS: QUETIAPINE FUMARATE 200 MG TAB PO SCH (21:30)
[2017-11-09 22:56] VITALS: BP 100/66; PULSE 97; TEMP 36.6; O2SAT 98
[2017-11-10] MEDS: AMPICILLIN/SULBACTAM SOD INJ 3,000 MG in SODIUM CHLORIDE 0.9% 100ML 100 ML IV SCH ×3 (02:15→14:33)
[2017-11-10] MEDS: D5W AND NSS 1,000 ML IV SCH (05:58)
[2017-11-10 07:09] VITALS: BP 103/71; PULSE 71; TEMP 36.6; O2SAT 99
[2017-11-10] MEDS: PAROXETINE 20 MG TAB PO SCH (09:10)
[2017-11-10] MEDS: BuPROPion SR 100 MG TABCR PO SCH (09:10)
--- NOTE | 2017-11-10 11:17 | Progress Note ---
Subjective Date of Service: November 10, 2017. Subjective Pt evaluation today including: conversation w/ patient, physical exam, chart review, lab review pt seen in followup, she is doing well. still with some pain but improving. improving ROM as well. no f/c. tolerating abx. wound culture pending, gram stain negative. blood cultures remain negative. asking to go home. all remaining ros reviewed and are negative, no plans for OR. Problem List Medical Problems: (1) Dog bite Status: Acute Objective Vital Signs Date Time Temp Pulse Resp B/P (MAP) Pulse Ox O2 Delivery O2 Flow Rate FiO2 11/10/17 07:45 Room Air 11/10/17 07:09 36.6 71 16 103/71 (82) 99 Room Air 11/10/17 00:00 Room Air 11/09/17 22:56 36.6 97 16 100/66 (77) 98 Room Air 11/09/17 16:20 Room Air 11/09/17 15:15 36.4 94 16 105/71 (82) 99 Room Air 11/09/17 12:17 36.5 102 16 106/74 (85) 100 Room Air Physical Exam General Appearance: WD/WN, no apparent distress Eyes: normal inspection, EOMI Neck: supple Respiratory/Chest: lungs clear, normal breath sounds, no respiratory distress Cardiovascular: regular rate, rhythm, no edema Abdomen: non tender, soft Extremities: non-tender, no pedal edema Neurologic/Psychiatric: alert, oriented x 3 Skin: normal color Comments: right hand with improved erythema, almost completely resolved. improved edema and improved ROM at wrist. able to move all fingers, sensation intact. no drainage or bleeding. Laboratory Results Item Value Date Time Gram Stain - Final Resulted 11/09/17 1430 Drainage - Surface Arm , Right Upper Blood Culture - Preliminary Resulted 11/08/17 1340 Blood NO GROWTH TO DATE. Blood Culture - Preliminary Resulted 11/08/17 1335 Blood NO GROWTH TO DATE. Assessment and Plan (1) Cellulitis Assessment & Plan: continue unasyn while inpatient, upon d/c can change to augmentin 875mg po bid x 14 days. ok for d/c from ID standpoint. (2) Animal bite of hand
[2017-11-10 14:53] VITALS: BP 103/71; PULSE 71; TEMP 36.6; O2SAT 99
--- NOTE | 2017-11-10 15:32 | Progress Note ---
Medicine Progress Note Date & Time of Visit: November 10, 2017 at 15:28. 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 no chills denies other symptoms states she is ready and would like to be discharged today Objective Last 8 Hrs Date Time Temp Pulse Resp B/P (MAP) Pulse Ox O2 Delivery O2 Flow Rate FiO2 11/10/17 14:53 36.6 71 16 99 Room Air 11/10/17 07:45 Room Air Physical Exam: General- oriented x 3, not in distress, speaks in sentences with no effort Eyes- anicteric Neck- supple, no JVD Lungs- clear to auscultation bilaterally, no rales/wheezes Heart- regular rhythm; no murmur, normal rate Abdomen- normal bowel sounds, soft, nontender Extremities- right arm: minimal erythema, no warmth/tenderness, very small serous discharge from puncture sites full ROM hand/fingers/wrist no pretibial edema, no calf tenderness; peripheral pulses intact Neuro- alert, oriented x 3; no gross focal deficits Skin- warm & dry Assessment & Plan RIGHT WRIST CELLULITIS, DOG BITE -CT negative for fluid collection MRI arm noted -- improving blood culture and wound cultures: negative received Unasyn IV x 3 days --Ortho Consulted, Dr. Avendano--> no surgical intervention recommended ID Consulted Dr. Benites--> recommend 14 days of Augmentin (patient already has prescription from initial presentation to ER) -- ff up with PCP on Monday 11/13, will also need suture removal BIPOLAR DISORDER -Continue home medications; bupropion, limited green, paroxetine, quetiapine DVT PROPHYLAXIS -SCDs in the event patient needs invasive procedure DISPOSITION d/c home -- ff up with PCP on Monday 11/13, will also need suture removal Current Inpatient Medications: Current Inpatient Medications Medications (Trade) Dose Ordered Sig/Khanh Route Start Time Stop Time Status Last Admin Dose Admin Ioversol (Optiray 320) 100 ml UD PRN IV 11/08/17 15:45 11/12/17 15:44 Acetaminophen (Tylenol Tab) 650 mg Q4H PRN PO 11/08/17 17:15 12/08/17 17:14 Ondansetron HCl (Zofran Inj) 4 mg Q6H PRN IV 11/08/17 17:15 12/08/17 17:14 Ampicillin Sodium/ Sulbactam Sodium 3000 mg/Sodium Chloride 108 ml @ 200 mls/hr Q6H IV 11/08/17 20:00 11/18/17 17:14 11/10/17 14:33 200 MLS/HR Ketorolac Tromethamine (Toradol Inj) 15 mg Q6H PRN IV 11/08/17 17:15 11/13/17 17:14 11/09/17 20:26 15 MG Morphine Sulfate (MoRPHine SULFATE INJ) 3 mg Q3H PRN IV 11/08/17 17:15 11/22/17 17:14 Bupropion HCl (Wellbutrin-Sr Tab) 200 mg DAILY PO 11/09/17 09:00 12/09/17 08:59 11/10/17 09:10 200 MG Paroxetine HCl (pAXil TAB) 20 mg DAILY PO 11/09/17 09:00 12/09/17 08:59 11/10/17 09:10 20 MG Quetiapine Fumarate (seroQUEL TAB) 200 mg HS PO 11/08/17 21:00 12/08/17 20:59 11/09/17 21:30 200 MG Gadobutrol (Gadavist) 6 mmol UD PRN IV 11/08/17 22:15 11/12/17 22:14 Dextrose/Sodium Chloride 1,000 ml @ 100 mls/hr Q10H IV 11/09/17 08:45 12/09/17 08:44 11/10/17 05:58 100 MLS/HR Lamotrigine (Lamictal Tab) 50 mg HS PO 11/10/17 21:00 12/09/17 08:59
[2017-11-10] MEDS ORDERED: AMOX875T PO (15:34)
--- NOTE | 2017-11-10 15:46 | Discharge Instructions ---
Discharge Instructions Date of Service November 10, 2017. Admission Reason for Admission: Cellulitis Of Arm, Right Discharge Discharge Diagnosis / Problem: CELLULITIS OF RIGHT ARM Discharge Goals Goal(s): Diagnostic testing, Therapeutic intervention Activity Recommendations Activity Limitations: as noted below Lifting Limitations: until after follow-up appointment (NO LIFTING ON THE RIGHT ARM) Exercise/Sports Limitations: until after follow-up appointment Shower/Bathe: keep incision dry Driving or Machine Use: NO DRIVING UNTIL FOLLOW UP WITH PRIMARY CARE PHYSICIAN . Instructions / Follow-Up Instructions / Follow-Up PLEASE REVIEW YOUR NEW MEDICATION LIST AND FOLLOW INSTRUCTIONS CAREFULLY. WASH THE AFFECTED AREA WITH SOAP AND WATER TWICE A DAY. KEEP AREA DRY WITH A CLEAN TOWEL. ENSURE ADEQUATE DAILY FLUID INTAKE. TAKE YOGURT DAILY WHILE ON ANTIBIOTICS AND AT LEAST 1 WEEK AFTER COMPLETING ANTIBIOTICS. CALL YOUR PRIMARY CARE PHYSICIAN OR RETURN TO ER IMMEDIATELY IF WITH WORSENING OF SYMPTOMS, FEVER/CHILLS, REDNESS/WARMTH/PAIN/DRAINAGE ON THE AFFECTED AREAS. FOLLOW UP WITH PRIMARY CARE PHYSICIAN DR. NATACHA MEJIA ON Monday11/13/17 AT 11: [address] [place] [address] , [place] [address] Current Hospital Diet Patient's current hospital diet: Regular Diet Discharge Diet Recommended Diet: Regular Diet Procedures Procedures Performed: RIGHT UPPER EXTREMITY MRI, CT, ULTRASOUND Pending Studies Studies pending at discharge: no Laboratory Results Lipid Panel Test 10/17/17 13:02 Range/Units Triglycerides Level 77 0-150 mg/dl Cholesterol Level 154 0-200 mg/dl HDL Cholesterol 47 mg/dl Cholesterol/HDL Ratio 3.3 LDL Cholesterol, Calculated 92 mg/dl Medical Emergencies . Who to Call and When: Medical Emergencies: If at any time you feel your situation is an emergency, please call 911 immediately. . Non-Emergent Contact Non-Emergency issues call your: Primary Care Provider Call Non-Emergent contact if: you have a fever, your pain is not controlled, your pain is worsening, wound has increased drainage, wound has increased redness, wound has increased pain, you have any medication questions . . "Provider Documentation" section prepared by Jose Jernigan. .
--- NOTE | 2017-11-10 15:49 | Discharge Summary ---
Discharge Summary Date of Service November 10, 2017. Discharge Summary Admission Date: November 08, 2017 at 17:08 Discharge Date: November 10, 2017 Discharge Disposition: Home Principal Diagnosis: RIGHT HAND/FOREARM CELLULITIS, DOG BITE Secondary Diagnoses/Problems: Please refer to hospital course below. Procedures: R FOREARM 2 VIEWS ROUTINE HISTORY: 22 years-old Female dog bite; increasing redness and swelling acute soft tissue injury of the right forearm COMPARISON: None available TECHNIQUE: 2 views of the right forearm FINDINGS: No acute fracture, dislocation or opaque foreign body. Mild to moderate soft tissue swelling about the mid and distal forearm, most pronounced along the volar surface. IMPRESSION: Soft tissue swelling without fracture or opaque foreign body. The above report was generated using voice recognition software. It may contain grammatical, syntax or spelling errors. Electronically signed by: Guy Kern M.D. 11/08/2017 3:33 PM R UPPER EXTREMITY WITH HISTORY: 22 years-old Female dog bitel eval for tenosynvitis acute right arm pain status post dog bite COMPARISON: Right forearm radiographs of same day TECHNIQUE: Multiple axial CT images of the right upper extremity were obtained following the intravenous administration of 95 and now Optiray 320 IV contrast. A dose lowering technique was used consistent with the principals of [place]. FINDINGS: No acute fracture, dislocation or opaque foreign body identified. No significant degenerative changes. There is mild subcutaneous edema about the volar and dorsal aspects of the distal forearm without loculated fluid collection or abnormal enhancement identified. No definite evidence of muscular injury on these images. No definite evidence of tenosynovitis. IMPRESSION: 1. Mild likely posttraumatic subcutaneous edema about the volar and dorsal aspects of the distal forearm without large hematoma, opaque foreign body or acute fracture identified. 2. CT is relatively insensitive for evaluation of tenosynovitis. If of further clinical concern, follow-up MRI on a nonemergent basis is recommended. The above report was generated using voice recognition software. It may contain grammatical, syntax or spelling errors. Electronically signed by: Guy Kern M.D. 11/08/2017 4:36 PM RIGHT WRIST MRI WITH AND WITHOUT INTRAVENOUS CONTRAST HISTORY: Right wrist swelling and pain. r/o flexor tenosynovitis in the wrist, r/o septic wrist joint TECHNIQUE: Multiplanar multisequence MRI of the right wrist was performed both before and the intravenous administration of contrast. COMPARISON STUDY: Right wrist CT 11/08/2017. FINDINGS: There is subcutaneous edema and enhancement throughout the majority of the wrist most pronounced dorsally. Small amount of fluid along the extensor tendons of the wrist. This is most pronounced at the extensor digitorum tendons. There is also a small wrist effusion. There is mild enhancement of the synovial lining within the wrist. The flexor tendons are intact. The median nerve and mastoids a normal caliber and signal intensity. Normal marrow signal intensity seen throughout the visit osseous structures. No abnormal T1 signal or erosions at this time to suggest an osteomyelitis. Cartilage spaces are maintained for age. There is also a small amount of fluid tracking deep to the flexor tendons. No fracture or dislocation. IMPRESSION: 1. Subcutaneous edema and enhancement throughout the majority of the wrist most pronounced dorsally. This is consistent with a cellulitis. 2. Small amount of fluid surrounding the extensor tendons most pronounced at the extensor digital tendons consistent with a nonspecific tenosynovitis. There is fluid tracking deep to the flexor tendons but not surrounding the flexor tendons appear 3. Small wrist effusion. No bony destruction are cartilage abnormality at this time. However, there is mild enhancement of the synovial lining consistent with a nonspecific synovitis. Therefore, a septic process cannot be excluded. 4. No evidence for osteomyelitis. Electronically signed by: Johny Lyon M.D. 11/08/2017 10:50 PM Dictated Date/Time: 11/08/2017 10:42 PM Consultations: ORTHO DR. JACKMAN, ID DR. AGUILAR Pending Studies/Follow-Up: Please refer to hospital course below. Medication Reconciliation New Medications: Amoxicillin & Pot Clavulanate (Augmentin 875-125 mg) 1 Tab Tab 875 MG PO BID for 14 Days, #28 TAB 0 Refills Continued Medications: Bupropion Hcl (Wellbutrin Sr) 200 Mg Tab 200 MG PO DAILY, TAB Lamotrigine (Lamictal) Unknown Strength Tab 1 TAB PO DAILY, TAB Paroxetine (Paxil) 20 Mg Tab 20 MG PO DAILY, TAB Quetiapine Fumarate (Seroquel) 200 Mg Tab 200 MG PO HS, TAB Admission Information HPI (per Admitting provider): 22-year-old female who presents to the ED with increased redness, pain, swelling to dog bite site that happened yesterday. Patient presented to the ER yesterday after she was bitten in the right wrist by a dog at a [employer] she is employed at. While in the ED, patient received sutures to the 2 puncture wound sites and given a prescription for Augmentin. Patient reports that this morning whenever she took off the bandage that was placed in the ED, she noticed increased redness and swelling. She also reports a moderate amount of pain and associated tingling in her fingers. She denies fevers and chills. No abdominal pain, nausea, vomiting. She denies chest pain, shortness of breath , lightheadedness, dizziness, diaphoresis, or syncopal events. No urinary symptoms. In the ED, patient is afebrile with no leukocytosis. CT of the right wrist was obtained that does not show any fluid collection. She was given IV clindamycin, IV Rocephin, IV morphine, IV Toradol, and IV Zofran. Physical Exam (per Admitting): General Appearance: WD/WN, no apparent distress Head: normocephalic, atraumatic Eyes: normal inspection, EOMI, sclerae normal ENT: hearing grossly normal, + pertinent finding (Mucous membranes moist) Neck: supple, no JVD, trachea midline Respiratory/Chest: lungs clear, normal breath sounds, no respiratory distress Cardiovascular: regular rate, rhythm, no edema, normal peripheral pulses Abdomen/GI: normal bowel sounds, non tender, soft, no organomegaly Extremities/Musculoskelatal: + pertinent finding (Puncture wounds noted on the right wrist-1 on the dorsal aspect of the ulna, another on the ventral aspect of the radius-sutures intact; has significant surrounding erythema and edema, erythema has been outlined; palpable right radial pulse; decreased sensation noted to fingers; ROM to fingers limited due to pain) Neurologic/Psych: no motor/sensory deficits, alert, normal mood/affect, oriented x 3 Skin: normal color, warm/dry Hospital Course RIGHT HAND/FOREARM CELLULITIS, DOG BITE -CT negative for fluid collection MRI arm noted -- improving blood culture and wound cultures: negative received Unasyn IV x 3 days --Ortho Consulted, Dr. Jackman--> no surgical intervention recommended ID Consulted Dr. Aguilar--> recommend 14 days of Augmentin (patient already has prescription from initial presentation to ER) -- ff up with PCP on Monday 11/13, will also need suture removal BIPOLAR DISORDER -Continue home medications; bupropion, limited green, paroxetine, quetiapine DISPOSITION d/c home -- ff up with PCP on Monday 11/13, will also need suture removal Total time spent on discharge = 30 minutes This includes examination of the patient, discharge planning, medication reconciliation, and communication with other providers. Discharge Instructions Discharge Instructions Date of Service November 10, 2017. Admission Reason for Admission: Cellulitis Of Arm, Right Discharge Discharge Diagnosis / Problem: CELLULITIS OF RIGHT ARM Discharge Goals Goal(s): Diagnostic testing, Therapeutic intervention Activity Recommendations Activity Limitations: as noted below Lifting Limitations: until after follow-up appointment (NO LIFTING ON THE RIGHT ARM) Exercise/Sports Limitations: until after follow-up appointment Shower/Bathe: keep incision dry Driving or Machine Use: NO DRIVING UNTIL FOLLOW UP WITH PRIMARY CARE PHYSICIAN . Instructions / Follow-Up Instructions / Follow-Up PLEASE REVIEW YOUR NEW MEDICATION LIST AND FOLLOW INSTRUCTIONS CAREFULLY. WASH THE AFFECTED AREA WITH SOAP AND WATER TWICE A DAY. KEEP AREA DRY WITH A CLEAN TOWEL. ENSURE ADEQUATE DAILY FLUID INTAKE. TAKE YOGURT DAILY WHILE ON ANTIBIOTICS AND AT LEAST 1 WEEK AFTER COMPLETING ANTIBIOTICS. CALL YOUR PRIMARY CARE PHYSICIAN OR RETURN TO ER IMMEDIATELY IF WITH WORSENING OF SYMPTOMS, FEVER/CHILLS, REDNESS/WARMTH/PAIN/DRAINAGE ON THE AFFECTED AREAS. FOLLOW UP WITH PRIMARY CARE PHYSICIAN DR. NATACHA MEJIA ON Monday11/13/17 AT 11: 05 AM. [address] [facility] , [place] [address] Current Hospital Diet Patient's current hospital diet: Regular Diet Discharge Diet Recommended Diet: Regular Diet Procedures Procedures Performed: RIGHT UPPER EXTREMITY MRI, CT, ULTRASOUND Pending Studies Studies pending at discharge: no Laboratory Results Lipid Panel Test 10/17/17 13:02 Range/Units Triglycerides Level 77 0-150 mg/dl Cholesterol Level 154 0-200 mg/dl HDL Cholesterol 47 mg/dl Cholesterol/HDL Ratio 3.3 LDL Cholesterol, Calculated 92 mg/dl Medical Emergencies . Who to Call and When: Medical Emergencies: If at any time you feel your situation is an emergency, please call 911 immediately. . Non-Emergent Contact Non-Emergency issues call your: Primary Care Provider Call Non-Emergent contact if: you have a fever, your pain is not controlled, your pain is worsening, wound has increased drainage, wound has increased redness, wound has increased pain, you have any medication questions . . "Provider Documentation" section prepared by Jose Jernigan. .
== END 2017-11-10 16:35 | disposition home or self-care (01) | DRG 603 ==
LOC: C.EDB 13:14 → C.MSN 17:08 → ENRESERV 17:22
PROVIDERS: ADMIT Hospitalist; ATTEND Internal Medicine
DX: L03.115 Cellulitis of right lower limb (principal); S61.5 Open wound of wrist; F31.9 Bipolar disorder, unspecified; Z79.899 Other long term (current) drug therapy; W54.0XXS Bitten by dog, sequela; Y92.29 Other specified public building as the place of occurrence of the external cause; Y99.0 Civilian activity done for income or pay